=== PATIENT | male | born 1940 | race Caucasian/White ===

== ENCOUNTER 2018-10-18 04:33 | Inpatient (IN) ==
[2018-10-11 12:25] LABS: Appearance,Urine CLEAR; Bilirubin,Urine NEG (NEG); Color,Urine STRAW; Culture Indicated,Urine NO; Glucose,Urine (UA) NEGATIVE (NEG); Ketones,Urine NEG (NEG); Leukocyte Esterase,Urine NEG /uL (NEG); Nitrate,Urine NEG (NEG); Protein,Urine NEG (NEG); Specific Gravity,Urine 1.006 (1.000-1.035); Urine Blood NEG mg/dL (<0.03); Urobilinogen,Urine NEG (NEG)
[2018-10-11 12:41] LABS: Basophils # (Auto) 0 K/mcL (0.0-0.3); Basophils % (Auto) 0.5 % (0.0-2.0); Eosinophils # (Auto) 0.3 K/mcL (0.0-0.7); Eosinophils % (Auto) 3.2 % (0.0-7.0); Granulocytes % (Auto) 66.9 % (38.0-78.0); Hematocrit 41.4 % (41.0-55.0); Hemoglobin 13.7 g/dL (13.5-16.5); Lymphocytes # (Auto) 2.6 K/mcL (1.5-4.8); Mean Cell Volume 90.3 fL (80.0-100.0); Mean Platelet Volume 7.5 fL (7.4-10.4); Monocytes # (Auto) 0.6 K/mcL (0.1-0.9); Monocytes % (Auto) 5.4 % (1.0-12.0); Platelet Count 191 K/mcL (140-440); RBC 4.59 M/mcL (4.50-5.90); Red Cell Distribution Width 14.6 % (11.5-14.5); WBC 10.7 K/mcL (4.5-11.0)
[2018-10-11 12:54] LABS: Blood Urea Nitrogen 13 mg/dl (8-23); Calcium 9.5 mg/dl (8.6-10.4); Carbon Dioxide 26 mmol/L (22-30); Chloride 102 mmol/L (96-108); Glomerular Filtration Rate 65; Glucose 132 mg/dL (70-105); Potassium 4.7 mmol/L (3.3-5.1); Sodium 140 mmol/L (133-145)
[2018-10-11 13:02] LABS: INR 1.2 (0.9-1.1)
[2018-10-11 14:08] LABS: Estimated Average Glucose(eAG) 154 mg/dL
[2018-10-18] MEDS ORDERED: SCOPOLAMINE 1 PATCH PATCH TOPICAL PRN (05:00)
[2018-10-18] MEDS ORDERED: IPRATROPIUM/ALBUTEROL 3 ML AMPUL.NEB NEB PRN ×3 (05:00→10:13)
[2018-10-18] MEDS ORDERED: VANCOMYCIN 1,500 MG in 0.9 % SODIUM CHLORIDE 500 ML IV SCH ×2 (06:00→17:30)
[2018-10-18] MEDS ORDERED: ACETAMINOPHEN 500 MG TABLET PO SCH (06:00)
[2018-10-18] MEDS ORDERED: 0.9 % SODIUM CHLORIDE 9 ML, KETOROLAC 30 MG, ROPIVACAINE HCL/PF 49.5 ML, EPINEPHrine 0.... IJ SCH (06:00)
[2018-10-18] MEDS ORDERED: oxyCODONE 10 MG TAB.ER.12H PO SCH (06:00)
[2018-10-18] MEDS ORDERED: GABAPENTIN 300 MG CAPSULE PO SCH (06:00)
[2018-10-18] MEDS ORDERED: GENTAMICIN SULFATE 800 MG/20 ML VIAL IR ONE (08:13)
[2018-10-18] MEDS ORDERED: ONDANSETRON 4 MG/2 ML VIAL IV PRN ×2 (09:47→10:11)
[2018-10-18] MEDS ORDERED: KETOROLAC 15 MG/ML VIAL IV PRN (09:47)
[2018-10-18] MEDS ORDERED: METHOCARBAMOL 1,000 MG/10 ML VIAL IV PRN (09:47)
[2018-10-18] MEDS ORDERED: FLUMAZENIL 0.1 MG/ML ML IV PRN (09:47)
[2018-10-18] MEDS ORDERED: BENZOCAINE/MENTHOL 1 LOZENGE PO PRN ×2 (09:47→10:11)
[2018-10-18] MEDS ORDERED: fentaNYL 100 MCG/2 ML VIAL IV PRN (09:47)
[2018-10-18] MEDS ORDERED: HYDROmorphone 2 MG/ML VIAL IV PRN ×2 (09:47→10:11)
[2018-10-18] MEDS ORDERED: ACETAMINOPHEN 1,000 MG/100 ML BOTTLE IV ONE (09:47)
[2018-10-18] MEDS ORDERED: NALOXONE HCL 0.4 MG/ML VIAL IV PRN (09:47)
[2018-10-18] MEDS ORDERED: LACTATED RINGERS 250 ML IV PRN (09:47)
[2018-10-18] MEDS ORDERED: LACTATED RINGERS 1,000 ML IV SCH (10:00)
[2018-10-18] MEDS ORDERED: MAGNESIUM HYDROXIDE 30 ML ORAL.SUSP PO PRN (10:11)
[2018-10-18] MEDS ORDERED: TRANEXAMIC ACID 1,000 MG/10 ML VIAL IV SCH (10:11)
[2018-10-18] MEDS ORDERED: POLYETHYLENE GLYCOL 3350 17 GM PACKET PO PRN (10:11)
[2018-10-18] MEDS ORDERED: FLEETS ADULT ENEMA PR PRN (10:11)
[2018-10-18] MEDS ORDERED: BISACODYL 10 MG SUPP.RECT PR PRN (10:11)
--- NOTE | 2018-10-18 10:19 | Brief Operative Note ---
Date of procedure: 10/18/18 Pre-op diagnosis: left knee mechanical failure Procedure: left tka revision of all components Grafts/Implants: Yes Anesthesia: GETA Complications: none Surgeon: Osman Leal Pharmaceutical Sales Representative: Seferino Green Estimated blood loss (cc): 50 Tourniquet Time (Minutes): 89 Specimens Removed/Pathology: none sent Condition: stable Disposition: PACU
--- NOTE | 2018-10-18 10:55 | XRay Report ---
CLINICAL INFORMATION: Postsurgical follow-up TECHNIQUE: AP and crosstable lateral left knee COMPARISON: Previous examination dated 06/15/2017 FINDINGS: Status post revision of left total knee arthroplasty. Prosthetic component since our anatomic. There is a left medial supracondylar fracture. This is nondisplaced. This is not identified on previous examination. No other acute abnormality IMPRESSION: 1. Status post left total knee arthroplasty 2. Nondisplaced fracture of the left medial supracondylar femur Interpreted and Authenticated by: Ray Keith 10/18/18
--- NOTE | 2018-10-18 11:01 | Operative Note ---
DATE OF OPERATION: 10/18/2018 PREOPERATIVE DIAGNOSIS: Left knee failed total knee arthroplasty, worn out and loosened. POSTOPERATIVE DIAGNOSES: 1. Left knee failed total knee arthroplasty, worn out and loosened. 2. Avascular patella, fractured and dislocated. PROCEDURE: Left total knee arthroplasty revision of all components. SURGEON: Osman Leal M.D. ICE CREAM SCOOPER: Seferino Green PA-C. The PA's assistance was required for the safe and efficient completion of the entire case. This provider's expertise and technical skill were required throughout the case. The PA assisted with preoperative coordination, intraoperative retraction, wound closure, dressing and splint application, as well as postoperative documentation and care coordination. ANESTHESIA: General LMA anesthesia. COMPLICATIONS: None. IMPLANTS: Revision [place] components from [place] with long-stemmed components on the femur and the tibia with augments and wedges. DESCRIPTION OF PROCEDURE: The patient was brought to the operating room and put to sleep with general LMA anesthesia. Once asleep, the patient had the left leg sterilely prepped and draped in the usual sterile fashion once this was confirmed as the operative site. We then exsanguinated the leg, inflated the tourniquet to 250 pounds of pressure. A midline incision was made, midvastus approach performed. We then removed the femoral and tibial components which showed severe metalosis. A soft tissue specimen was sent for high-powered field, which came back and revealed that there were no neutrophils seen. With this, we proceeded with the total knee revision. We removed all the synovitis throughout the joint and the metalosis and cysts. We made an intramedullary guide chuck into the tibia, and this was cut just below the cement level. We irrigated thoroughly and then removed these bony fragments. We set the rotation, punched into place a tibial baseplate with a large stem femoral component. We then made the cuts for a size 6 stem with 5 mm posterior augments and 5 mm distal augments. Once done, we then reestablished the center of rotation. We irrigated thoroughly and cemented into place a long stem tibial baseplate with a size 5 with external rotation to assist in tracking with offset of the stem of 4 mm in a size 17 stem. Once cemented into place, the femoral component was put into place with 5 mm augments posteriorly, size 6 femur and 5 mm augments distally with a 13 mm poly which tracked the best. Lateral release performed for the patella. A partial patellectomy of the bony fragments from the fractured patella was removed on the lateral side. We irrigated thoroughly and then implanted the final 13 polyethylene with a post and then repaired the extensor mechanism medially with a patellectomy. We irrigated thoroughly and closed this with #1 Stratafix x3 and then one nonabsorbable stitch. The patient tolerated this well. We had the patient go through full range of motion, very stable in both extension and flexion, balanced perfectly. RBKalen:bethanie Job ID: [id number] Doc ID: [id number] Osman Leal MD
[2018-10-18] MEDS: HYDROcodone/APAP 10/325MG TABLET PO PRN (12:03)
[2018-10-18] MEDS: KETOROLAC 15 MG/ML VIAL IV SCH ×3 (14:39→23:04)
[2018-10-18] MEDS: 0.45 % SODIUM CHLORIDE 1,000 ML IV SCH ×2 (14:39→19:37)
[2018-10-18] MEDS: 0.9 % SODIUM CHLORIDE 10 ML SYRINGE IV SCH ×2 (17:18→21:02)
[2018-10-18] MEDS: metFORMIN 500 MG TABLET PO SCH (17:53)
[2018-10-18] MEDS: diphenhydrAMINE 25 MG CAPSULE PO PRN (20:57)
[2018-10-18] MEDS: DOCUSATE SODIUM 100 MG CAPSULE PO SCH (20:57)
[2018-10-18] MEDS: SENNOSIDES 1 TABLET PO SCH (20:58)
[2018-10-18] MEDS: ASPIRIN 325 MG ENTERIC COATED TABLET PO SCH (20:58)
[2018-10-18] MEDS: GABAPENTIN 300 MG CAPSULE PO SCH (20:58)
[2018-10-18] MEDS: ACETAMINOPHEN 325 MG TABLET PO PRN (20:59)
[2018-10-18] MEDS: ATORVASTATIN 20 MG TABLET PO SCH (20:59)
[2018-10-18] MEDS ORDERED: TEMAZEPAM 15 MG CAPSULE PO PRN (21:00)
[2018-10-18] MEDS: INSULIN GLARGINE, HUMAN 1 UNIT/0.01 ML SQ SCH (21:01)
[2018-10-19] MEDS: 0.9 % SODIUM CHLORIDE 10 ML SYRINGE IV SCH ×3 (05:06→20:38)
[2018-10-19] MEDS: KETOROLAC 15 MG/ML VIAL IV SCH ×4 (05:07→23:08)
--- NOTE | 2018-10-19 07:22 | Orthopedic Progress Note ---
Subjective Patient information: Note initiated : 10/19/18 at 7:21 am Service Date, if different from initiated Date: [] Patient: Shukri Donovan 78 y/o M admitted on 10/18/18 for Left Total Knee Arthroplasty Revision . Chief Complaint: [Pt is stable this morning on post operative day 1 without any significant concerns or complaints. Patients vital signs have remained stable. Patients dressing is dry and is grossly intact from a neurovascular and motor standpoint. Patients 10 point ROS is otherwise negative. ] Objective Vital signs: Vital Signs Temp Pulse Resp BP Pulse Ox 10/19/18 04:03 97.3 F 93 H 16 119/69 95 10/18/18 23:10 98.0 F 82 12 106/63 92 10/18/18 23:05 92 10/18/18 19:59 98.0 F 93 H 16 133/74 95 10/18/18 15:59 97.9 F 78 18 126/75 97 10/18/18 13:17 69 122/74 91 10/18/18 12:19 138/67 98 10/18/18 12:10 98 10/18/18 12:02 75 134/81 99 10/18/18 11:48 84 127/64 99 10/18/18 11:34 81 139/63 97 10/18/18 11:09 97.1 F 79 12 122/71 99 10/18/18 10:55 82 12 127/69 98 10/18/18 10:40 96.9 F L 85 15 132/72 95 10/18/18 10:35 88 11 L 130/71 99 10/18/18 10:30 85 17 137/74 100 10/18/18 10:25 97.0 F 92 H 10 L 146/81 99 Intake and Output 10/18/18 10/19/18 10/19/18 21:59 05:59 13:59 Intake Total 1920 1765 Output Total 100 450 Balance 1820 1315 Intake: IV 500 1000 Sodium Chloride 0.45% 1,000 ml 1000 @ 100 mls/hr IV .Q10H [facility] Rx#: [id number] Oral 1420 765 Output: Void Amount 100 450 Other: Meal Dinner Percent of Meal Consumed 100% Feeding Ability Independent Urine Appearance Clear Clear Urine Color Bright Yellow Light Rachel Urine Odor Strong Strong Weight 252 lb Intake & Output: Intake & Output 10/18/18 10/19/18 10/19/18 21:59 05:59 13:59 Intake Total 1920 1765 Output Total 100 450 Balance 1820 1315 Weight 252 lb Intake: IV 500 1000 Sodium Chloride 0.45% 1,000 ml 1000 @ 100 mls/hr IV .Q10H VI Rx#: [id number] Oral 1420 765 Output: Void Amount 100 450 Other: Meal Dinner Percent of Meal Consumed 100% Feeding Ability Independent Urine Appearance Clear Clear Urine Color Bright Yellow Light Rachel Urine Odor Strong Strong Incision: Yes healing Incision clean and dry: Yes Dressing: Yes clean Weight bearing status: full Neurological exam IM: Yes motor sensory intact, Yes neurovascular intact Extremities exam IM: Yes Foot pink and warm, Yes neurovascular intact - Labs CBC & BMP: 10/19/18 04:30 10/11/18 09:52 Labs: Orthopedic Labs 10/11/18 09:52 PT 15.0 H INR 1.2 H APTT 37 10/19/18 10/11/18 04:30 09:52 Hgb 13.7 Hct 31.4 L 41.4 Assessment and Plan (1) History of revision of total knee arthroplasty The patient has been educated regarding dressing care, Physical Therapy recommendations, home exercises, restrictions, and follow up appointments. The patient has had all necessary DME prescribed. The patient has remained relatively stable during their hospital course. Leave Dermabond patch intact until followup Status: Acute (2) History of revision of total knee arthroplasty Status: Acute
--- NOTE | 2018-10-19 07:26 | Discharge Summary ---
Ortho Discharge - TKA - Patient Instructions Diet: Regular Diet Activity: activity as tolerated, weight bearing as tolerated Total Knee Protocol: For Total Knee: Start ROM EMPERATRIZ with stationary bike or rocking chair. Work on gaining full extension of knee. Posterior dislocation precautions provided. Hip abductor strengthening and gait training instructions provided. Apply Cryocuff as instructed. Dressing Care: May shower in 2 days - Problem Maintenance (1) History of revision of total knee arthroplasty Status: Acute (2) History of revision of total knee arthroplasty Status: Acute - Follow Up Plan Follow Up Appointments: Seferino Green PA-C [Physician Heel Layer] - 11/04/18 9:20 am Disposition: Home, Self-Care Prognosis: Good Rehab Potential: Good I certify that the patient requires SNF services: No Overall status at discharge: patient is progressing back to baseline - Orders For Discharge Prescriptions: Aspirin [Ecotrin] 325 mg PO BID #60 tab.ec Docusate Sodium [Colace] 100 mg PO BID #60 cap HYDROcodone/APAP 10/325MG [[place] 10-325Mg] 1 - 2 tab PO Q4HP PRN #75 tab PRN Reason: Pain Level 3-6
[2018-10-19] MEDS ORDERED: ePHEDrine 50 MG/ML AMPUL IV ONE (07:45)
[2018-10-19] MEDS ORDERED: PROPOFOL 200 MG/20 ML VIAL IV ONE (07:45)
[2018-10-19] MEDS ORDERED: KETAMINE 100 MG/ML ML IV ONE (07:45)
[2018-10-19] MEDS ORDERED: VASOPRESSIN 20 UNIT/ML VIAL IV ONE (07:45)
[2018-10-19] MEDS ORDERED: LIDOCAINE HCL/PF 100 MG/5 ML SYRINGE IV ONE (07:45)
[2018-10-19] MEDS ORDERED: MIDAZOLAM 2 MG/2 ML VIAL IV ONE (07:45)
[2018-10-19] MEDS ORDERED: PHENYLEPHRINE 10 MG/ML VIAL IV ONE (07:45)
[2018-10-19] MEDS ORDERED: ONDANSETRON 4 MG/2 ML VIAL IV ONE (07:45)
[2018-10-19] MEDS: FUROSEMIDE 80 MG TABLET PO SCH (07:59)
[2018-10-19] MEDS: GABAPENTIN 300 MG CAPSULE PO SCH ×2 (07:59→20:35)
[2018-10-19] MEDS: metFORMIN 500 MG TABLET PO SCH ×2 (07:59→18:10)
[2018-10-19] MEDS: ASPIRIN 325 MG ENTERIC COATED TABLET PO SCH ×2 (07:59→20:34)
[2018-10-19] MEDS: DOCUSATE SODIUM 100 MG CAPSULE PO SCH ×2 (07:59→20:34)
[2018-10-19] MEDS: IPRATROPIUM/ALBUTEROL SULFATE 1 PUFF INHALER INH SCH (08:02)
[2018-10-19] MEDS: ACETAMINOPHEN 325 MG TABLET PO PRN ×2 (11:28→20:51)
--- NOTE | 2018-10-19 12:45 | Surgical Pathology Report ---
HISTOLOGY SPECIMEN MICROSCOPIC DIAGNOSIS LEFT KNEE SUPERIOR POUCH, SOFT TISSUE, EXCISION: -- FIBROUS TISSUE WITH LYMPHOHISTIOCYTIC INFLAMMATION, POLARIZABLE FOREIGN MATERIAL AND PIGMENT-LADEN MULTINUCLEATED GIANT CELLS COMPATIBLE WITH METALLOSIS -- NO ACTIVE (NEUTROPHILIC) INFLAMMATION IDENTIFIED. (EBD:devang) INTRAOPERATIVE CONSULTATION FROZEN SECTION DIAGNOSIS ([facility] [place] [place]) FSA - SOFT TISSUE, LEFT KNEE, SUPERIOR POUCH, BIOPSY: -- 0-1 NEUTROPHILS/hpf. (RLF:sln) GROSS DESCRIPTION Received fresh for intraoperative consultation labeled left knee superior pouch, is a segment of variegated yellow-barahona to black-barahona rubbery tissue that measures 3.5 x 2.5 x 1.5 cm. Sectioning through reveals no gross lesions. Frozen section is performed. Pta sections in one cassette. (RLF:sln) Electronically Signed by: Elina Burgess M.D.
[2018-10-19] MEDS: ATORVASTATIN 20 MG TABLET PO SCH (20:34)
[2018-10-19] MEDS: SENNOSIDES 1 TABLET PO SCH (20:34)
[2018-10-19] MEDS: INSULIN GLARGINE, HUMAN 1 UNIT/0.01 ML SQ SCH (20:35)
[2018-10-19] MEDS: diphenhydrAMINE 25 MG CAPSULE PO PRN (23:08)
[2018-10-20] MEDS: KETOROLAC 15 MG/ML VIAL IV SCH (06:12)
[2018-10-20] MEDS: 0.9 % SODIUM CHLORIDE 10 ML SYRINGE IV SCH ×3 (06:13→20:38)
--- NOTE | 2018-10-20 07:12 | Discharge Summary ---
Ortho Discharge - TKA - Patient Instructions Diet: Regular Diet Activity: activity as tolerated, weight bearing as tolerated Total Knee Protocol: For Total Knee: Start ROM EMPERATRIZ with stationary bike or rocking chair. Work on gaining full extension of knee. Posterior dislocation precautions provided. Hip abductor strengthening and gait training instructions provided. Apply Cryocuff as instructed. Additional Instructions: Dermabond - Follow Up Plan Follow Up Appointments: Seferino Green PA-C [Physician Rubber Goods Inspector Tester] - 11/04/18 9:20 am Disposition: Xfer SNF Prognosis: Good Rehab Potential: Good I certify that the patient requires SNF services: Yes - Orders For Discharge Prescriptions: Aspirin [Ecotrin] 325 mg PO BID #60 tab.ec Docusate Sodium [Colace] 100 mg PO BID #60 cap HYDROcodone/APAP 10/325MG [[place] 10-325Mg] 1 - 2 tab PO Q4HP PRN #75 tab PRN Reason: Pain Level 3-6 Additional Discharge Orders: Physical Therapy at Discharge - TKA Location: None Selected CPM Discharge Order Location: None Selected Toilet Riser Discharge Order Location: None Selected Walker Location: None Selected
[2018-10-20] MEDS: metFORMIN 500 MG TABLET PO SCH ×2 (08:15→17:10)
[2018-10-20] MEDS: GABAPENTIN 300 MG CAPSULE PO SCH ×2 (08:16→20:40)
[2018-10-20] MEDS: ASPIRIN 325 MG ENTERIC COATED TABLET PO SCH ×2 (08:17→20:40)
[2018-10-20] MEDS: APIXABAN 2.5 MG TABLET PO SCH ×2 (08:18→20:40)
[2018-10-20] MEDS: FUROSEMIDE 80 MG TABLET PO SCH (08:18)
[2018-10-20] MEDS: DOCUSATE SODIUM 100 MG CAPSULE PO SCH ×2 (08:19→20:40)
[2018-10-20] MEDS: IPRATROPIUM/ALBUTEROL SULFATE 1 PUFF INHALER INH SCH (08:20)
[2018-10-20] MEDS: ACETAMINOPHEN 325 MG TABLET PO PRN (16:13)
[2018-10-20] MEDS: HYDROcodone/APAP 10/325MG TABLET PO PRN ×3 (17:11→23:36)
[2018-10-20] MEDS: SENNOSIDES 1 TABLET PO SCH (20:38)
[2018-10-20] MEDS: INSULIN GLARGINE, HUMAN 1 UNIT/0.01 ML SQ SCH (20:38)
[2018-10-20] MEDS: ATORVASTATIN 20 MG TABLET PO SCH (20:40)
[2018-10-21] MEDS: 0.9 % SODIUM CHLORIDE 10 ML SYRINGE IV SCH (10:06)
[2018-10-21] MEDS: metFORMIN 500 MG TABLET PO SCH (10:15)
[2018-10-21] MEDS: HYDROcodone/APAP 10/325MG TABLET PO PRN (10:15)
[2018-10-21] MEDS: FUROSEMIDE 80 MG TABLET PO SCH (10:16)
[2018-10-21] MEDS: APIXABAN 2.5 MG TABLET PO SCH (10:16)
[2018-10-21] MEDS: DOCUSATE SODIUM 100 MG CAPSULE PO SCH (10:16)
[2018-10-21] MEDS: ASPIRIN 325 MG ENTERIC COATED TABLET PO SCH (10:16)
[2018-10-21] MEDS: GABAPENTIN 300 MG CAPSULE PO SCH (10:16)
[2018-10-21] MEDS: IPRATROPIUM/ALBUTEROL SULFATE 1 PUFF INHALER INH SCH (10:18)
== END 2018-10-21 10:30 | DRG 467 ==
LOC: MEDSUR 04:33
PROVIDERS: ADMIT Orthopaedic Surgery; ATTEND Orthopaedic Surgery